=== PATIENT | male | born 1990 | race Caucasian/White ===

== ENCOUNTER → 2023-03-24 | Emergency (ER) | payer OTHER ==
--- NOTE | 2023-03-24 19:23 | RAD REPORT ---
EXAM DESCRIPTION: Shoulder Right 2 View - 03/24/2023 6:50 pm CLINICAL HISTORY: PAIN COMPARISON: No comparisons TECHNIQUE: Internal and external rotation views of the right shoulder were obtained. FINDINGS: There is no fracture. Glenohumeral articulation is well aligned. AC joint widening. Caudal displacement of the acromion relative to the distal clavicle by approximately 3/4 clavicular shaft w idth. No acute or suspicious findings. IMPRESSION: Findings suggestive of acromioclavicular joint separation.
--- NOTE | 2023-03-24 19:26 | ER ---
Nurse's Notes [facility] Name: Aiden Sanchez Age: 32 yrs Sex: Male : 1990 Arrival Date: 03/24/2023 Time: 18:21 Bed 13 Private MD: Diagnosis: Acromioclavicular joint separation Presentation: 03/24 18:26 Chief complaint: Patient states: report right shoulder pain. Coronavirus screen: Client cp4 denies travel out of the [place] in the last 14 days. At this time, the client does not indicate any symptoms associated with coronavirus-19. Ebola Screen: Patient negative for fever greater than or equal to 101.5 degrees Fahrenheit, and additional compatible Ebola Virus Disease symptoms Patient denies exposure to infectious person. Patient denies travel to an Ebola-affected area in the 21 days before illness onset. No symptoms or risks identified at this time. Initial Sepsis Screen: Does the patient meet any 2 criteria? No. Patient's initial sepsis screen is negative. Does the patient have a suspected source of infection? No. Patient's initial sepsis screen is negative. Risk Assessment: Do you want to hurt yourself or someone else? Patient reports no desire to harm self or others. Onset of symptoms was March 24, 2023. 18:26 Method Of Arrival: [employer] Enforcement: [place] [employer] cp4 18:26 Acuity: JUANJOSE 4 cp4 Triage Assessment: 18:28 General: Appears in no apparent distress. Behavior is calm, cooperative, appropriate cp4 for age. Pain: Complains of pain in anterior aspect of right shoulder and posterior aspect of right shoulder. Historical: - Allergies: 18:28 No Known Allergies; cp4 - Immunization history:: Adult Immunizations up to date. - Social history:: Smoking status: Patient denies any tobacco usage or history of. Screenin:30 [facility] ED Fall Risk Assessment (Adult) History of falling in the last 3 months, cp4 including since admission No falls in past 3 months (0 pts) Confusion or Disorientation No (0 pts) Intoxicated or Sedated No (0 pts) Impaired Gait No (0 pts) Mobility Assist Device Used No (0 pt) Altered Elimination No (0 pt) Score/Fall Risk Level 0 - 2 = Low Risk Oriented to surroundings, Maintained a safe environment, Educated pt \T\ family on fall prevention, incl call for assistance when getting out of bed, Assessed \T\ reinforced patient's understanding of fall precautions, Provided non-skid footwear, Hourly rounding (assess needs \T\ fall precautionary measures) done. Abuse screen: Denies threats or abuse. Nutritional screening: No deficits noted. Tuberculosis screening: No symptoms or risk factors identified. Assessment: 18:30 Reassessment: Patient appears in no apparent distress at this time. cp4 19:43 Reassessment: Patient appears in no apparent distress at this time. Patient and/or jb4 family updated on plan of care and expected duration. Pain level reassessed. Patient is alert, oriented x 3, equal unlabored respirations, skin warm/dry/pink. Vital Signs: 18:26 BP 134 / 80; Pulse 50; Resp 16; Temp 98; Pulse Ox 100% ; Weight 99.79 kg; Height 6 ft. cp4 2 in. ; Pain 7/10; 18:26 Body Mass Index 28.25 (99.79 kg, 187.96 cm) cp4 18:26 Pain Scale: Adult cp4 ED Course: 18:23 Patient arrived in ED. cp4 18:23 Shira Tripp is Primary Nurse. cp4 18:24 [facility]de [facility]C [facility]. kb 18:24 Cliff Conteh MD is Attending Physician. kb 18:28 Triage completed. cp4 18:28 Arm band placed on right wrist. Patient placed in waiting room. cp4 18:30 Bed in low position. Call light in reach. Side rails up X 1. Provided Education on: cp4 shoulder pain. 18:30 No provider procedures requiring assistance completed. Patient did not have IV access cp4 during this emergency room visit. 18:52 Shoulder Right (2 View) XRAY In Process Unspecified. EDMS Administered Medications: No medications were administered Medication: 18:30 VIS not applicable for this client. cp4 Outcome: 19:26 Discharge ordered by . kb 19:43 Discharged to Law Enforcement jb4 19:43 Condition: stable 19:43 Discharge instructions given to patient, Instructed on discharge instructions, follow up and referral plans. Demonstrated understanding of instructions, follow-up care, 19:44 Patient left the ED. jb4 Signatures: Dispatcher [employer] EDMS Aida Ugalde FNP-C FNP-Ckb Winston Welch, RN RN jb4 Shira Tripp cp4
--- NOTE | 2023-03-24 19:26 | EDPHYS ---
Physician Documentation [facility] Name: Aiden Sanchez Age: 32 yrs Sex: Male : 1990 Arrival Date: 03/24/2023 Time: 18:21 Bed 13 Private MD: ED Physician Cliff Conteh HPI: 03/24 19:04 This 32 yrs old Male presents to ER via [employer] with complaints of Shoulder kb Pain. 19:04 Pt is a 32 year old male who presents with right shoulder pain after falling onto it 6 kb days ago. . Historical: - Allergies: 18:28 No Known Allergies; cp4 - Immunization history:: Adult Immunizations up to date. - Social history:: Smoking status: Patient denies any tobacco usage or history of. ROS: 19:04 Constitutional: Negative for fever, chills, and weight loss, kb 19:04 MS/extremity: Positive for pain, of the posterior aspect of right shoulder and anterior aspect of right shoulder, 19:04 All other systems are negative, Exam: 19:04 Constitutional: This is a well developed, well nourished patient who is awake, alert, kb and in no acute distress. Head/Face: Normocephalic, atraumatic. ENT: Moist Mucous membranes Cardiovascular: Regular rate Respiratory: Respirations even and unlabored. No increased work of breathing. Talking in full sentences Skin: Warm, dry with normal turgor. Normal color. Neuro: Awake and alert, GCS 15, oriented to person, place, time, and situation. Moves all extremities. Normal gait. 19:04 Musculoskeletal/extremity: Extremities: grossly normal except: noted in the posterior aspect of right shoulder and anterior aspect of right shoulder: pain, tenderness, ROM: intact in all extremities, Circulation is intact in all extremities. Sensation intact. Vital Signs: 18:26 BP 134 / 80; Pulse 50; Resp 16; Temp 98; Pulse Ox 100% ; Weight 99.79 kg; Height 6 ft. cp4 2 in. ; Pain 7/10; 18:26 Body Mass Index 28.25 (99.79 kg, 187.96 cm) cp4 18:26 Pain Scale: Adult cp4 MDM: 18:24 Patient medically screened. kb 19:06 Differential diagnosis: dislocation, strain, contusion, fracture. Data reviewed: vital kb signs, nurses notes. 19:24 Counseling: I had a detailed discussion with the patient and/or guardian regarding the kb historical points, exam findings, and any diagnostic results supporting the discharge/admit diagnosis, radiology results, the need for outpatient follow up, a orthopedic surgeon, to return to the emergency department if symptoms worsen or persist or if there are any questions or concerns that arise at home. 03/24 18:24 Order name: Shoulder Right (2 View) XRAY; Complete Time: 19:24 kb Administered Medications: No medications were administered Disposition Summary: 03/24/23 19:26 Discharge Ordered Notes: Condition: Stable kb Location: [employer] Enforcement(03/24/23 19:26) kb Diagnosis - Acromioclavicular joint separation kb Followup: kb - With: Emergency Department - When: As needed - Reason: Worsening of condition Followup: kb - With: Private Physician - When: 2 - 3 days - Reason: Recheck today's complaints, Continuance of care, Re-evaluation by your physician Discharge Instructions: - Discharge Summary Sheet kb - Shoulder Pain, [id number] kb Forms: - Medication Reconciliation Form kb - Thank You Letter kb - Antibiotic Education kb - Prescription Opioid Use kb - Patient Portal Instructions kb - Leadership Thank You Letter kb Signatures: Dispatcher [employer] EDAida Schultz, BRISEYDA BROOKS-Shira Guy cp4 Corrections: (The following items were deleted from the chart) 19:26 19:26 Home kb kb
[2023-03-25 13:04] VITALS: BP 134/80; TEMP 98; O2SAT 100
== END ==
LOC: ER 18:21
DX: S43.101A Unspecified dislocation of right acromioclavicular joint, initial encounter (principal)